=== PATIENT | female | born 1960 | race Caucasian/White ===

== ENCOUNTER 2023-05-20 22:19 | Emergency (ER) | payer SELFPAY ==
[~2023-05-20] VITALS: Ht 165.1 cm; Wt 62.7 kg
[2023-05-20 22:23] VITALS: BP 139/82; PULSE 75; RESP 16; TEMP 98; O2SAT 98
--- NOTE | 2023-05-20 22:48 | NUR ---
Patient informed registration that she was going home, and "might [email or web address] back later".
== END 2023-05-20 23:00 | disposition left against medical advice (07) ==
LOC: ER 22:20
DX: M54.2 Cervicalgia (principal); Z53.21 Procedure and treatment not carried out due to patient leaving prior to being seen by health care provider
CPT/HCPCS: 99281

== ENCOUNTER 2023-05-23 17:39 | Emergency (ER) | payer BC ==
[~2023-05-23] VITALS: Ht 165.1 cm; Wt 62.7 kg
[2023-05-23 18:28] VITALS: BP 123/72; PULSE 81; RESP 16; TEMP 98.4; O2SAT 100
[2023-05-23] MEDS ORDERED: CYCL-1 PO (19:56)
== END 2023-05-23 20:03 | disposition home or self-care (01) ==
LOC: ER 17:39
DX: S76.012A Strain of muscle, fascia and tendon of left hip, initial encounter (principal); Z88.0 Allergy status to penicillin; Z79.899 Other long term (current) drug therapy; X58.XXXA Exposure to other specified factors, initial encounter; Y93.89 Activity, other specified; Y92.89 Other specified places as the place of occurrence of the external cause; Y99.8 Other external cause status
CPT/HCPCS: 73502; 99283

== ENCOUNTER 2023-11-25 06:33 | Day surgery (SDC) | payer BC ==
[2023-11-20 11:23] LABS: BASOPHILS % (AUTO) 0.6 % (0-1); EOSINOPHILS # (AUTO) 0.2 X10'3 (0-0.9); EOSINOPHILS % (AUTO) 3.6 % (0-6); LYMPHOCYTES # (AUTO) 1.4 X10'3 (1.1-4.8); LYMPHOCYTES % (AUTO) 26.5 % (21-51); MEAN CORPUSCULAR HGB CONC 33.5 g/dL (33.0-36.5); MEAN CORPUSCULAR VOLUME 98.5 FL (78-98); MEAN PLATELET VOLUME 7.4 FL (7.4-10.4); MONOCYTES # (AUTO) 0.5 X10'3 (0-0.9); MONOCYTES % (AUTO) 9.6 % (2-12); NEUTROPHILS # (AUTO) 3.1 X10'3 (1.8-7.7); NEUTROPHILS % (AUTO) 59.7 % (42-75); PRE OP HEMATOCRIT 42.7 % (35.0-45.0); PRE OP HEMOGLOBIN 14.3 g/dL (12.0-16.0); PRE OP PLATELET COUNT 297 X10'3 (140-440); PRE OP WHITE BLOOD COUNT 5.2 10'3 (4.8-10.8); RED BLOOD COUNT 4.33 X10'6 (4.20-5.60); RED CELL DISTRIBUTION WIDTH 13.7 % (11.5-14.5)
[2023-11-20 11:36] LABS: ALBUMIN 3.9 G/DL (3.4-5.0); ALBUMIN/GLOBULIN RATIO 1.3 (1.1-1.5); ALKALINE PHOSPHATASE 41 IU/L (46-116); BLOOD UREA NITROGEN 19 MG/DL (7-18); BUN/CREATININE RATIO 29.7 (10.0-20.0); CALCIUM 8.6 MG/DL (8.5-10.1); CREATININE 0.64 MG/DL (0.40-0.90); PRE OP ALT 20 U/L (30-65); PRE OP AST 13 U/L (10-37); PRE OP BILIRUB, TOTAL 0.7 MG/DL (0.0-1.0); PRE OP GLUCOSE 94 MG/DL (70-104); PRE OP POTASSIUM 4.4 MMOL/L (3.4-5.1); PRE OP SODIUM 143 MMOL/L (135-145); TOTAL CARBON DIOXIDE 28.4 MMOL/L (24-32); eGFR > 90 ML/MIN
[2023-11-20 11:44] LABS: CHLORIDE 107 MMOL/L (99-107); PRE OP ANION GAP 8 (8-16)
[~2023-11-25] VITALS: Ht 165.1 cm; Wt 67.7 kg
[2023-11-25] VITALS (9 sets, daily range): BP systolic 123–142; BP diastolic 78–90; PULSE 60–68; RESP 8–16; TEMP 97.9; O2SAT 61–100
[2023-11-25] MEDS: clindamycin-Cleocin 900mg/D5W 50 ML IV ONE (05:30)
[~2023-11-25 06:33] MED LIST: PHEN37.58 PO; PROG100C11 PO
[2023-11-25] MEDS: famotidine 20mg tablet PO ONE (08:32)
[2023-11-25] MEDS: ringers solution, lacted 1,000 ML IV SCH (08:33)
[2023-11-25] MEDS ORDERED: morphine 2 MG/ML inj. syringe IV PRN (09:45)
[2023-11-25] MEDS ORDERED: meperidine/PF 25mg/ml syringe IV PRN (09:45)
[2023-11-25] MEDS ORDERED: morphine 4 MG/ML inj SYRINge IV PRN (09:45)
[2023-11-25] MEDS ORDERED: ringers solution, lacted 1,000 ML IV SCH (09:45)
[2023-11-25] MEDS ORDERED: midazolam 1 mg/ML 2ml injection ONE (09:50)
[2023-11-25] MEDS ORDERED: fentaNYL/PF 50MCG/1 ML 2ML syringe ONE (09:50)
[2023-11-25] MEDS ORDERED: propofol inj 20 ML IV ONE (10:24)
[2023-11-25] MEDS ORDERED: LIDOcaine 0.5% (5mg/ml) 50ml vial ONE (10:24)
[2023-11-25] MEDS: BUPIVAcaine/PF 2.5mg/ml (0.25%) 10ml vial IJ ONE (10:36)
[2023-11-25] MEDS: meperidine/PF 25mg/ml syringe IV PRN ×2 (11:04→11:16)
[2023-11-25] MEDS: ondansetron/PF 4mg/2ml inj IV PRN (11:40)
[2023-11-25] MEDS: proCHLORperazine 10 MG/2 ml inj IV PRN (12:17)
== END 2023-11-25 12:22 | disposition home or self-care (01) ==
LOC: PAS 06:33
PROVIDERS: ATTEND Orthopaedic Surgery Hand Surgery
DX: S63.592A Other specified sprain of left wrist, initial encounter (principal); Z79.899 Other long term (current) drug therapy; Z90.49 Acquired absence of other specified parts of digestive tract; Z96.643 Presence of artificial hip joint, bilateral; Z88.0 Allergy status to penicillin; Z82.49 Family history of ischemic heart disease and other diseases of the circulatory system; X58.XXXA Exposure to other specified factors, initial encounter; Y93.89 Activity, other specified; Y92.89 Other specified places as the place of occurrence of the external cause; Y99.8 Other external cause status
CPT/HCPCS: 25320; 36415; 80053; 82948; 85025; 93005; C1713; J0780; J2175; J2250; J2405; J2704; J3010; J3490; J7030; J7120; Z7506; Z7508; Z7512; A4215; A4618; A7000